=== PATIENT | female | born 1955 | race Caucasian/White ===

== ENCOUNTER 2019-11-10 08:06 | Day surgery (SDC) | payer BC ==
[~2019-11-10] VITALS: Ht 170.2 cm; Wt 80.5 kg
[2019-11-10] MEDS ORDERED: PROTONIX40 MG PO (08:49)
[2019-11-10] MEDS ORDERED: AMBIEN5 MG PO (08:50)
[2019-11-10] MEDS ORDERED: AROMASIN25 MG PO (08:50)
[2019-11-10 08:52] VITALS: BP 129/70; Ht 170.2 cm; Wt 80.5 kg
[2019-11-10 08:54] LABS: BASOPHILS 0.2 % (0-2); EOSINOPHILS 1.3 % (0-7); HEMATOCRIT 43.9 % (36.0-48.0); HEMOGLOBIN 14.2 g/dL (12-16); IMMATURE GRANULOCYTES 0.2 % (0-5); LYMPHOCYTES 32.9 % (15-50); MCH 29.4 pg (26.0-34.0); MCHC 32.3 g/dL (31.0-37.0); MCV 90.9 fL (80.0-100.0); MONOCYTES 7.8 % (2-11); NEUTROPHILS 57.6 % (40-80); PLATELET COUNT 268 10x3/uL (130-400); RBC 4.83 10x6/uL (4.00-5.40); RDW 12.6 % (11.5-14.5); WBC 5.3 10x3/uL (4.8-10.8)
[2019-11-10 09:21] LABS: APTT 26.6 SECONDS (22.8-39.4); INR 1.04 (0.85-1.17); PROTIME 13.6 SECONDS (11.6-15.0)
--- NOTE | 2019-11-10 13:37 | NUR ---
DISCHARGE INSTRUCTIONS REVIEWED WITH PATIENT AND FRIEND. DISCHARGED HOME VIA WHEELCHAIR TO PRIVATE VEHICLE WITH FRIEND
--- NOTE | 2019-11-11 12:32 | OP ---
PATIENT NAME: STEPHANIE BHATT MEDICAL RECORD: [id number] :57 LOCATION:[facility] ADMISSION DATE: SURGEON: TACO PITTS MD DATE OF OPERATION: 11/10/2019 PREOPERATIVE DIAGNOSES: 1. History of peptic ulcer disease. 2. Desires screening colonoscopy. POSTOPERATIVE DIAGNOSES: 1. History of peptic ulcer disease. 2. Desires screening colonoscopy. 3. Mild pyloric gastritis. 4. No colonic polyps or masses. PROCEDURE: 1. Esophagogastroduodenoscopy with antral biopsies to rule out Helicobacter pylori. 2. Total colonoscopy to cecum. SURGEON: Taco Pitts MD QUARTER TRIMMER: None. BLOOD LOSS: Minimal. ANESTHESIA: IV sedation. COMPLICATIONS: None. The risks, possible complications and alternatives to the procedure were explained to the patient. She elects to proceed. The discussion specifically included, but was not limited to, bleeding requiring emergency reoperation, infection, intestinal injury. OPERATIVE COURSE: The patient was conveyed to endoscopy suite electively on 11/10/2019. IV sedation was induced by the anesthesia staff. A bite block was inserted. A gastroscope was inserted into the mouth. It was advanced easily into the hypopharynx. The esophagus was easily intubated as were the stomach and duodenum. Retroflexed and angulus views were obtained. Antral biopsies were obtained. The endoscope was then withdrawn under direct vision. The patient was turned 180 degrees and placed in the Good[place] position. A digital rectal examination was performed. A colonoscope was inserted through the anus. It was easily advanced to the cecum. The prep was adequate. I slowly withdrew the endoscope. I irrigated and aspirated extensively. The pullback was greater than a 12-minute pullback. A combination of normal imaging and narrow band imaging were utilized. A retroflexed view was obtained in the rectum. I then unretroflexed the scope and removed it under direct vision. There is no need for the patient to follow up with me in the office. We will call her with the results of the antral biopsies. I will plan for her next colonoscopy to take place in 4 years. TRANSINT:[id number] Voice Confirmation ID: [id number] DOCUMENT ID: [id number] OPERATIVE REPORT [id number] STEPHANIE BHATT CC: Daniele Macias APN, [phone] TACO PITTS MD at 1232 CC: JENNY GRACIA MD and DANIELE MACIAS APN [id number] DICTATION DATE: 11/10/19 1253 INSURANCE CLAIMS CLERK: 11/10/192221 [facility] 11/10/19 [facility] [address] [place] [address]
== END 2019-11-10 13:37 | disposition home or self-care (01) ==
LOC: D.OPS 08:06
PROVIDERS: Anesthesiology; ATTEND Surgery
DX: Z87.11 Personal history of peptic ulcer disease (principal); Z12.11 Encounter for screening for malignant neoplasm of colon; K29.60 Other gastritis without bleeding; K21.9 Gastro-esophageal reflux disease without esophagitis